=== PATIENT | female | born 1980 | race African-American/Black ===

== ENCOUNTER 2022-03-03 15:02 | Observation (INO) ==
[2022-03-03 15:48] LABS: Basophils % 0.6 % (0.0-0.8); Eosinophils # 0.1 10*3/uL (0.0-0.87); Eosinophils % 1.8 % (0.00-10.9); Hematocrit 37.2 VOL% (35.7-47.0); Hemoglobin 12.4 GM/DL (12.0-16.0); Immature Granulocytes % 0.2 %; Immature Granulocytes Absolute 0.01 #; Lymphocytes # 1.9 10*3/uL (1.4-4.0); Lymphocytes % 38.6 % (21.3-54.2); Mean Corpuscular HGB Conc 33.3 GM/DL (32-36); Mean Corpuscular Volume 87.3 FL (87-102); Mean Platelet Volume 10.3 FL (9.6-12.0); Monocytes # 0.3 10*3/uL (0.11-0.8); Monocytes % 6.2 % (1.7-12.7); Neutrophils % 52.6 % (38.7-73.9); Platelet Count 247 T/CUMM (130-400); Red Blood Count 4.26 MC/CUMM (3.8-5.5); Red Cell Distribution Width 12.1 % (9.3-17.3); White Blood Count 4.9 T/CUMM (4-12)
[2022-03-03 16:10] LABS: Eosinophils 3 % (0-10); Lymphocytes 39 % (20-55); Platelet Estimate Adequate; Total Cells Counted 100
[2022-03-03 16:12] LABS: Alanine Aminotransferase 23 U/L (13-56); Albumin 3.6 G/DL (3.4-5.0); Alkaline Phosphatase 74 U/L (45-117); Amylase 53 U/L (25-115); Aspartate Amino Transferase 22 U/L (0-37); Bilirubin,Total < 0.39 MG/DL (0.20-1.00); Blood Urea Nitrogen 10 MG/DL (7-18); Calcium 8.3 MG/DL (8.5-10.1); Carbon Dioxide 26 MMOL/L (21-32); Chloride 108 MMOL/L (98-107); Estimated Glom Filtration Rate 79 ML/MIN; Glucose 85 MG/DL (74-106); Osmolality,Calculated 272.7 MOS/KG (273-304); Potassium 3.3 MMOL/L (3.5-5.1); Sodium 138 MMOL/L (136-145)
[2022-03-03] MEDS ORDERED: ONDANSETRON 4 MG/2 ML VIAL IV PRN (16:19)
[2022-03-03] MEDS ORDERED: HYDROmorphone 1 MG/1 ML SYRINGE IV PRN (16:19)
[2022-03-03] MEDS ORDERED: ACETAMINOPHEN 325 MG TABLET PO PRN (16:19)
[2022-03-03] MEDS: PANTOPRAZOLE 40 MG VIAL IV SCH (18:28)
[2022-03-03] MEDS: DEXTROSE 5% NACL 0.45% 1,000 ML IV SCH (18:33)
[2022-03-03] MEDS: hydrALAZINE 20 MG/1 ML VIAL IV PRN (21:53)
[2022-03-03] MEDS: ONDANSETRON 4 MG/2 ML VIAL IV PRN (21:56)
[2022-03-03] MEDS: KETOROLAC 30 MG/1 ML VIAL IV SCH (22:44)
[2022-03-03] MEDS: HYDROmorphone 1 MG/1 ML SYRINGE IV PRN (23:22)
[2022-03-04] MEDS: PROMETHAZINE INJ 25 MG in SODIUM CHLORIDE 0.9% 50 ML IV PRN ×3 (00:23→19:35)
[2022-03-04] MEDS: KETOROLAC 30 MG/1 ML VIAL IV SCH ×4 (05:07→23:30)
[2022-03-04] MEDS ORDERED: INDOCYANINE GREEN 25 MG VIAL IV ONE (08:20)
[2022-03-04] MEDS: PANTOPRAZOLE 40 MG VIAL IV SCH (09:19)
[2022-03-04] MEDS ORDERED: propofoL 200 MG/20 ML VIAL IV ONE (10:13)
[2022-03-04] MEDS ORDERED: ROCURONIUM 50 MG/5 ML VIAL IV ONE (10:13)
[2022-03-04] MEDS ORDERED: LIDOCAINE 2% 5 ML VIAL ONE (10:13)
[2022-03-04] MEDS ORDERED: fentaNYL 100 MCG/2 ML VIAL ONE (10:13)
[2022-03-04] MEDS ORDERED: MIDAZOLAM 2 MG/2 ML VIAL ONE (10:14)
[2022-03-04] MEDS: LISINOPRIL/HCTZ 10-12.5 MG TABLET PO SCH (10:15)
[2022-03-04] MEDS: DEXTROSE 5% NACL 0.45% 1,000 ML IV SCH ×2 (10:15→16:45)
[2022-03-04] MEDS ORDERED: BUPIVACAINE MPF 0.25% 30 ML VIAL ONE (10:17)
[2022-03-04] MEDS ORDERED: TISSUE ADHESIVE 1 EACH APPLICATOR TOP ONE (10:17)
[2022-03-04] MEDS ORDERED: LIDOCAINE 1%/EPI INJ 20 ML VIAL ONE (10:17)
[2022-03-04] MEDS ORDERED: ONDANSETRON 4 MG/2 ML VIAL ONE (10:49)
[2022-03-04] MEDS ORDERED: ACETAMINOPHEN INJ 1,000 MG/100 ML VIAL IV ONE (10:49)
[2022-03-04] MEDS ORDERED: DEXAMETHASONE 4 MG/1 ML VIAL ONE (10:49)
[2022-03-04] MEDS ORDERED: LACTATED RINGERS 1,000 ML IV ONE (10:49)
[2022-03-04] MEDS ORDERED: SEVOFLURANE 1 UNIT/15 MINUTE INH ONE (10:49)
[2022-03-04] MEDS ORDERED: PHENYLEPHRINE 1 MG/10 ML SYRINGE IV ONE (11:03)
[2022-03-04] MEDS ORDERED: HYDROmorphone 1 MG/1 ML SYRINGE IV PRN (11:55)
[2022-03-04] MEDS ORDERED: diphenhydrAMINE 50 MG/1 ML VIAL IV PRN (11:55)
[2022-03-04] MEDS ORDERED: ONDANSETRON 4 MG/2 ML VIAL IV PRN (11:55)
[2022-03-04] MEDS ORDERED: PROMETHAZINE INJ 25 MG in SODIUM CHLORIDE 0.9% 50 ML IV PRN (11:55)
[2022-03-04] MEDS ORDERED: PROMETHAZINE 25 MG/1 ML VIAL ONE (12:04)
[2022-03-04] MEDS: MEPERIDINE 25 MG/1 ML VIAL IV PRN ×2 (12:05→12:15)
[2022-03-04] MEDS: hydrALAZINE 20 MG/1 ML VIAL IV PRN (12:30)
[2022-03-04] MEDS ORDERED: METOCLOPRAMIDE 10 MG/2 ML VIAL IV ONE (13:15)
[2022-03-04] MEDS: HYDROmorphone 1 MG/1 ML SYRINGE IV PRN ×2 (14:04→19:37)
[2022-03-04] MEDS: ONDANSETRON 4 MG/2 ML VIAL IV PRN (16:06)
[2022-03-05] MEDS: KETOROLAC 30 MG/1 ML VIAL IV SCH (05:23)
[2022-03-05 07:55] VITALS: BP 122/73
[2022-03-05] MEDS: ONDANSETRON 4 MG/2 ML VIAL IV PRN (08:10)
[2022-03-05] MEDS: PANTOPRAZOLE 40 MG VIAL IV SCH (08:10)
[2022-03-05] MEDS: LISINOPRIL/HCTZ 10-12.5 MG TABLET PO SCH (08:11)
== END 2022-03-05 09:55 | disposition home or self-care (01) ==
LOC: N.EDINP 15:02 → N.ED 15:02 → N.3E 17:15
PROVIDERS: ADMIT Surgery; ATTEND Surgery